=== PATIENT | female | born 2005 | race Caucasian/White ===

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

== ENCOUNTER 2024-02-05 18:47 | Emergency (ER) | payer OTHER, SELFPAY ==
[2024-02-05 21:12] VITALS: BP 125/83; PULSE 69; RESP 16; TEMP 36.9; O2SAT 99; BMI 20.4
[2024-02-05 21:58] LABS: Appearance Urine Hazy; Glucose Urine UA 100 mg/dL (Negative); Leukocyte Esterase Urine Small (1+) (Negative); Nitrite Urine Positive (Negative); PH 6.5 (5.0-9.0); UMIC TRIGGER UACC YES; Urine Blood Negative (Negative); Urine Ketones Trace mg/dL (Negative); Urine Protein 100 (2+) mg/dL (Neg-Trace)
[2024-02-05 21:59] LABS: Color Urine Orange
[2024-02-05 22:01] LABS: UPreg QC Valid YES; Urine Pregnancy NEGATIVE (NEGATIVE)
[2024-02-05 22:04] LABS: Bacteria Urine 4+ (None Seen); Hyaline Casts Urine 0-2 /LPF (0-2); UACC Culture Trigger YES; WBC Urine 21-50 /HPF (0-5)
[2024-02-05 22:28] LABS: RBC Urine 0-2 /HPF (0-2)
--- NOTE | 2024-02-06 01:01 | ED_ITS ---
HPI - Female Genitourinary General Chief complaint: Urogenital-Female Stated complaint: ?UTI Time Seen by Provider: 02/06/24 00:32 Source: patient Mode of arrival: ambulatory Limitations: no limitations History of Present Illness HPI Narrative: Patient is a 18-year-old female who presents emergency department for evaluation of dysuria and urinary frequency over the past 6 days. Her mother advised to take [id number] azo which she reports did not alleviate her symptoms. She denies any history of urinary tract infection but is concerned she may currently have 1. When asked she does admit to holding her bladder and not urinating for extended periods after having a sensation to void. Denies possibility of reporting her last menstrual period was 01/30/2024. Denies fevers, chills, nausea, vomiting, abdominal pain, back pain, hematuria, constipation, diarrhea. Related Data Home Medications Medication Instructions Recorded Confirmed fluticasone propionate 50 1 spray intranasal DAILY 02/15/23 mcg/actuation nasal spray,suspension (Flonase Allergy Relief) Previous Rx's Medication Instructions Recorded ACL defiance brace #1 ea 02/15/23 cefuroxime axetil 250 mg tablet 250 mg PO BID #13 tabs 02/06/24 Allergies Allergy/AdvReac Type Severity Reaction Status Date / Time No Known Allergies Allergy Verified 02/05/24 21:11 [No Known Allergies*] Review of Systems Review of Systems: Yes all other systems are reviewed and are negative [facility] Past Medical History Attestation statement: The following information was validated with the patient. Source: old records reviewed Surgical History History of right knee surgery Social History Social History Patient Tobacco Use Status: Never used Tobacco Advance Directives: No Advance Directives Information Provided: No Current occupational status: employed and student Current occupation: [employer] student, [employer] Physical Exam Vital Signs: Vital Signs: Last Vital Signs Temp 97.9 F 02/06/24 01:34 Pulse 73 02/06/24 01:34 Resp 17 02/06/24 01:34 BP 115/63 02/06/24 01:34 Pulse Ox 98 02/06/24 01:34 O2 Del Method Room Air 02/06/24 01:34 BMI result Body Mass Index 20.4 Appearance: Alert.?Oriented to person, place and time. No acute distress.?Normal affect. Eyes: Pupils equal, round and reactive to light.? ENT: Pharynx normal.?? Neck: Normal inspection.? Neck supple.?? CVS: Heart sounds normal. Normal heart rate and rhythm.? Pulses normal.?? Respiratory: No respiratory distress.? Lung sounds clear to auscultation bilaterally?? Abdomen: Soft and non-tender. Normoactive bowel sounds. ??No CVA tenderness Skin: Skin warm and dry.? Normal skin color.? Extremities: No lower extremity edema. Neuro: Moves all extremities spontaneously. Sensation intact bilaterally. Ambulates with normal steady gait. Medications Administered Discontinued Medications Generic Name Dose Route Start Last Admin Trade Name Freq PRN Reason Stop Dose Admin Cefuroxime Axetil 250 mg 02/06/24 01:01 02/06/24 01:27 Cefuroxime Axetil 250 Mg Tablet PO 02/06/24 01:02 250 mg ONCE ONE Administration Medical Decision Making Medical Decision Making [facility] Narrative: Patient is a 18 female who presents emergency department for evaluation of dysur ia and urinary frequency as per HPI. Examination is overall benign, urinalysis is consistent with UTI, low suspicion for pyelonephritis based on history and physical examination. She is tolerating oral intake. At this time feel that she is stable for discharge home with course of antibiotics after receiving the initial dose in the emergency department and recommend outpatient follow-up with her primary care provider. Discussed strict return precautions. All questions answered. Stable for discharge Differential Diagnosis Differential Diagnoses: The differential diagnosis associated with the presentation includes (As noted above) Lab Data MDM Lab Attestation statement: I reviewed the patient's lab results. (As noted above) Labs: Lab Results 02/05/24 Range/Units 21:36 Urine Color [place] Urine Appearance Hazy Urine pH 6.5 (5.0-9.0) Ur Specific [place] 1.020 (1.005-1.025) Urine Protein 100 (2+) H (Neg-Trace) mg/dL Urine Glucose (UA) 100 H (Negative) mg/dL Urine Ketones Trace (Negative) mg/dL Urine Blood Negative (Negative) Urine Nitrite Positive H (Negative) Ur Leukocyte Esterase Small (1+) H (Negative) Urine RBC 0-2 (0-2) /HPF Urine WBC 21-50 H (0-5) /HPF Ur Squamous Epith Cells 11-20 (0-2) /HPF Urine Bacteria 4+ (None Seen) Hyaline Casts 0-2 (0-2) /LPF Urine Test NEGATIVE (NEGATIVE) Prescription Management I considered prescription management with: Antibiotic Discharge Plan Discharge Clinical Impression: Urinary tract infection Patient Disposition: Home, Self-Care Instructions: Urinary Tract Infection in Women (ED) Prescriptions: New cefuroxime axetil 250 mg tablet 250 mg PO BID Qty: 13 0RF No Action fluticasone propionate [Flonase Allergy Relief] 50 mcg/actuation spray,elizabeth pension 1 spray intranasal DAILY Rx Instructions: administer into each nostril (DME) ACL defiance brace See Rx Instructions .ROUTE .MEDSUPPLY Qty: 1 0RF Rx Instructions: n/a Referrals: Physician,Unknown J [Primary Care Provider] - Interventions: ED Discharge Assessment Last Done: 02/06/24 01:34 Discharge Date/Time: 02/06/24 01:35
[2024-02-06 01:17] VITALS: BP 115/63; PULSE 73; RESP 17; TEMP 36.6; O2SAT 98
[2024-02-06] MEDS: cefuroxime axetiL 250 MG TABLET PO (01:27)
[2024-02-06 01:34] VITALS: BP 115/63; PULSE 73; RESP 17; TEMP 36.6; O2SAT 98
== END 2024-02-06 01:35 | disposition home or self-care (01) ==
PROVIDERS: Emergency Provider Student in an Organized Health Care Education/Training Program
DX: N39.0 Urinary tract infection, site not specified (principal); R30.0 Dysuria; R35.0 Frequency of micturition
CPT/HCPCS: 81001; 81025; 87086; 87088; 87186; 99283; 99284

== ENCOUNTER 2024-10-29 07:11 | Emergency (ER) | payer MEDICAID, SELFPAY ==
[2024-10-29 07:13] VITALS: BP 127/82; PULSE 88; RESP 16; TEMP 37.2; O2SAT 98; BMI 22.2
--- NOTE | 2024-10-29 07:39 | ED_ITS ---
HPI - URI/Sore Throat General Chief Complaint: Upper Respiratory Symptoms Stated Complaint: Congestion Time Seen by Provider: 10/29/24 07:13 Source: patient and family (MOTHER) Mode of arrival: ambulatory Limitations: no limitations History of Present Illness HPI Narrative: THIS IS A VERY PLEASANT 19 YEARS OLD PATIENT PRESENTED TO THE EMERGENCY DEPARTMENT COMPLAINING OF SORE THROAT LEFT EAR PAIN A DIFFICULT SWALLOWING BECAUSE OF THE SORE THROAT. SYMPTOMS STARTED YESTERDAY SHE IS ABLE TO DRINK FLUID BUT SHE HAS PAIN WHEN SHE SWALLOWS. MD elicited complaint: sore throat Pertinent past history: other (DENIES ANY MAJOR MEDICAL PROBLEMS) Onset (ago): day(s) (1) Consistency: constant Severity: moderate Able to tolerate fluids by mouth: Yes Exacerbating factors: nothing Relieving factors: nothing Associated symptoms: denies other symptoms Related Data Home Medications ?Medication ?Instructions ?Recorded ?Confirmed fluticasone propionate 50 1 spray intranasal DAILY 02/15/23 mcg/actuation nasal spray,suspension (Flonase Allergy Relief) Previous Rx's ?Medication ?Instructions ?Recorded ACL defiance brace #1 ea 02/15/23 cefuroxime axetil 250 mg tablet 250 mg PO BID #13 tabs 02/06/24 amoxicillin 500 mg capsule 500 mg PO BID #20 caps 10/29/24 Allergies Allergy/AdvReac Type Severity Reaction Status Date / Time No Known Allergies Allergy Verified 10/29/24 07:21 [No Known Allergies*] Review of Systems Constitutional: Constitutional: Reports no additional constitutional complaints ENT: Denies change in voice, Reports sore throat and Reports throat swelling Respiratory: Respiratory: Reports no additional respiratory complaints and Denies cough Allergic/Immunologic: Allergic/Immunologic: Reports throat swelling [facility] Past Medical History [facility] Narrative: PATIENT DENIES ANY PAST MEDICAL HISTORY Surgical History History of right knee surgery Social History Social History Patient Tobacco Use Status: Never used Tobacco Advance Directives: No Advance Directives Information Provided: Yes Current occupational status: employed and student Current occupation: [employer] student, [employer] Physical Exam Vital Signs: Vital Signs: Last Vital Signs Temp 99.0 F 10/29/24 07:13 Pulse 88 10/29/24 07:13 Resp 16 10/29/24 07:13 BP 127/82 10/29/24 07:13 Pulse Ox 98 10/29/24 07:13 O2 Del Method Room Air 10/29/24 07:13 BMI result Body Mass Index 22.2 ON EXAMINATION SHE LOOKS WELL SHE IS NOT TOXIC-APPEARING SITTING UP IN THE STRETCHER Const: General: comfortable, no acute distress and well developed Nutritional Appearance: well nourished Orientation/consciousness: patient oriented x3 Limitations: no limitations HEENT: Other: EXAMINATION OF THE HEAD EYES EARS NOSE AND THROAT SHOWED NORMOCEPHALIC, NO JAUNDICE, EXAMINATION OF THE THROAT SHOWED THAT SHE HAS SWOLLEN UVULA NO EXUDATION SEEN. TMS BILATERAL WITHIN NORMAL LIMIT Mouth: no audible dysphonia and no drooling Throat: No peritonsillar mass and Yes uvular edema Neck: Neck: Yes normal visual inspection and Yes full ROM Chest: Chest palpation & inspection: normal inspection of the chest Resp: Effort & Inspection: normal respiratory effort and able to speak in complete sentences Auscultation: clear to auscultation bilaterally Cardio: Jugular venous distension: no JVD Rate: regular rate Rhythm: regular rhythm GI: Inspection: Yes normal to inspection Palpation (GI): Soft to palpation Skin: General skin exam: no rashes or lesions noted Neuro: General: patient oriented x3, gait normal and CN's II-XI intact bilaterally Extrem: General: Yes normal to inspection Medications Administered Discontinued Medications Generic Name Dose Route Start Last Admin Trade Name Freq PRN Reason Stop Dose Admin Dexamethasone 10 mg 10/29/24 07:39 10/29/24 07:47 Dexamethasone 2 Mg Tablet PO 10/29/24 07:40 10 mg ONCE ONE Administration Ibuprofen 800 mg 10/29/24 07:39 10/29/24 07:47 Ibuprofen 800 Mg Tablet PO 10/29/24 07:40 800 mg ONCE ONE Administration Medical Decision Making Medical Decision Making [facility] Narrative: SHE PRESENTED WITH SORE THROAT EAR PAIN ON EXAMINATION SHE HAS A SWOLLEN UVULA DIFFERENTIAL DIAGNOSIS UVULITIS/STREP PHARYNGITIS/LARYNGITIS Differential Diagnosis Differential Diagnoses: The differential diagnosis associated with the presentation includes ABOVE UVULITIS/STREP PHARYNGITIS/LARINGITIS Admission/Observation Consideration of admission/observation: Escalation of care including admission/observation considered Lab Data [facility] Lab Attestation statement: I reviewed the patient's lab results. Labs: Lab Results 10/29/24 Range/Units 07:29 S. pyogenes GrpA ETIENNE Positive A (Negative) Independent Historian mother Discharge Plan Discharge Clinical Impression: Strep pharyngitis, Uvulitis Patient Disposition: Home, Self-Care Instructions: Strep Throat (DC), Uvulitis (ED) Additional Instructions: Follow-up with your primary care physician, we sent a prescription for antibiotic to your pharmacy in [place], return to the emergency room if feeling worse any concern Prescriptions: New amoxicillin 500 mg capsule 500 mg PO BID Qty: 20 0RF No Action cefuroxime axetil 250 mg tablet 250 mg PO BID Qty: 13 0RF fluticasone propionate [Flonase Allergy Relief] 50 mcg/actuation spray,suspension 1 spray intranasal DAILY Rx Instructions: administer into each nostril (DME) ACL defiance brace See Rx Instructions .ROUTE .MEDSUPPLY Qty: 1 0RF Rx Instructions: n/a Referrals: Physician,Unknown J [Primary Care Provider] - 3 days Stand Alone Forms: Work/School Release Print Language: Greek
[2024-10-29] MEDS: dexAMETHasone 2 MG TABLET 10 MG PO (07:47)
[2024-10-29] MEDS: Ibuprofen 800 MG TABLET PO (07:47)
[2024-10-29 07:52] LABS: IDNOW Serial# 58CA691E; Strep A Nucleic Acid Positive (Negative)
[2024-10-29 08:15] VITALS: BP 123/77; PULSE 81; RESP 20; TEMP 36.9; O2SAT 100
[2024-10-29] MEDS: Amoxicillin 500 MG CAPSULE PO (08:15)
[2024-10-29 08:23] LABS: Influenza A PCR NEGATIVE (Negative); Influenza B PCR NEGATIVE (Negative); Resp Syncy Virus RNA Qual PCR NEGATIVE (Negative); SARS COV2 PCR INHOUSE NEGATIVE (Negative)
== END 2024-10-29 08:21 | disposition home or self-care (01) ==
PROVIDERS: Emergency Provider Emergency Medicine
DX: J02.0 Streptococcal pharyngitis (principal); B95.0 Streptococcus, group A, as the cause of diseases classified elsewhere; K12.2 Cellulitis and abscess of mouth; H92.02 Otalgia, left ear; Z03.818 Encounter for observation for suspected exposure to other biological agents ruled out
CPT/HCPCS: 0241U; 87651; 99283; J8540

== ENCOUNTER 2025-06-19 12:57 | Emergency (ER) | payer OTHER, SELFPAY ==
--- NOTE | ~2025-06-19 | XR_ITS ---
EXAMINATION: XR CHEST 2 VIEWS HISTORY: cough COMPARISON: There are no prior studies available for comparison. FINDINGS: PA and lateral views of the chest are submitted. The lungs are expanded and clear. There is no pleural effusion, pneumothorax, or pulmonary vascular congestion. The heart is normal in size. The bones are intact. XR/XR chest 2V IMPRESSION: Normal examination of the chest. Electronically signed by: Brandon Washburn MD 06/19/2025 01:46 PM EDT
--- NOTE | 2025-06-19 13:00 | ECG_ITS ---
Test Reason : CP Blood Pressure : */* mmHG Vent. Rate : 96 BPM Atrial Rate : 96 BPM P-R Int : 114 ms QRS Dur : 92 ms QT Int : 354 ms P-R-T Axes : 63 66 11 degrees QTcB Int : 447 ms Normal sinus rhythm with sinus arrhythmia Normal ECG No previous ECGs available Referred By: Generic ED Physician Electronically Signed By: URIEL JOHNSON
[2025-06-19 13:13] VITALS: BP 127/92; PULSE 94; RESP 18; TEMP 37.2; O2SAT 99; BMI 25.9
--- NOTE | 2025-06-19 13:16 | ED_ITS ---
HPI - General Adult General Chief complaint: Upper Respiratory Symptoms Stated complaint: Sinus Infection Ear & Chest Pain Time Seen by Provider: 06/19/25 14:28 Source: patient Mode of arrival: ambulatory Limitations: no limitations History of Present Illness ED Provider: Marilyn Barboza PA-C HPI narrative: Patient is a 19 year old assigned female at with no reported medical history presenting to the emergency department today with sinus congestion, cough, and chest pain with coughing. Patient states that over the last 3-4 days she has had nasal congestion, a cough, and chest pain with coughing that has not improved. Patient denies any other complaints at this time. Relieving factors: none Exacerbating factors: none Associated symptoms: chest pain (with coughing) and cough Treatments prior to arrival: none Related Data Home Medications ?Medication ?Instructions ?Recorded ?Confirmed fluticasone propionate 50 1 spray intranasal DAILY 05/04 mcg/actuation nasal spray,suspension (Flonase Allergy Relief) Previous Rx's ?Medication ?Instructions ?Recorded ACL defiance brace #1 ea 02/15/23 cefuroxime axetil 250 mg tablet 250 mg PO BID #13 tabs 02/06/24 amoxicillin 500 mg capsule 500 mg PO BID #20 caps 10/12 07/05 Allergies Allergy/AdvReac Type Severity Reaction Status Date / Time No Known Allergies (No Known Allergy Verified 06/19/25 13:16 Allergies*) Review of Systems Constitutional: Constitutional: Reports as per HPI Eyes: Eyes: Reports as per HPI ENT: Reports as per HPI Cardiovascular: Cardiovascular: Reports chest pain (with coughing) Respiratory: Respiratory: Reports cough Gastrointestinal: Gastrointestinal: Reports as per HPI Genitourinary: Genitourinary: Reports as per HPI Musculoskeletal: Musculoskeletal: Reports as per HPI Neurologic: Reports as per HPI Psychiatric: Psychiatric: Reports as per HPI Endocrine: Endocrine: Reports as per HPI Hematologic/Lymphatic: Hematologic/Lymphatic: Reports no additional hematologic/lymphatic complaints Allergic/Immunologic: Allergic/Immunologic: Reports no additional allergic/immunologic complaints [facility] Past Medical History Attestation statement: The following information was validated with the patient. Source: old records reviewed and nursing notes reviewed Surgical History History of right knee surgery Social History Social History Patient Tobacco Use Status: Never used Tobacco Advance Directives: No Advance Directives Information Provided: Yes Current occupational status: employed and student Current occupation: [employer] student, [employer] Physical Exam ED Vital Signs: Vital Signs - 24 hr 06/19/25 13:13 06/19/25 14:48 Temperature 98.9 F 98.9 F Pulse Rate 94 94 Respiratory Rate 18 18 Blood Pressure 127/92 H 127/92 H Pulse Oximetry 99 99 Oxygen Delivery Method Room Air Room Air BMI result Body Mass Index 25.9 Const General: cooperative, no acute distress, alert and awake Nutritional Appearance: well nourished Orientation/consciousness: patient oriented x3 HENMT Head: Yes normal to inspection and Yes atraumatic Ears: hearing grossly normal bilaterally and external ears normal General nose exam: Normal external nose present, no nasal discharge noted and no epistaxis Face and sinus: Yes normal facial exam, No abrasion and No laceration Mouth: Normal oral and palatal mucosa present, no drooling and no muffled voice Eyes General: appearance normal, both eyes and all related structures Periorbital: periorbital findings normal Eyelids: Yes eyelids normal Conjunctivae: conjunctivae normal Pupils: Equal, round and reactive pupils present EOM: EOMs intact bilaterally Neck Neck: Yes normal visual inspection and Yes full ROM Resp Effort & Inspection: normal respiratory effort and able to speak in complete sentences Neuro General: patient oriented x3, moves all extremities and CN's II-XI intact bilaterally Cranial nerves: Yes Equal, round and reactive pupils present Cognition (Neuro): normal cognition Extrem General: Yes normal to inspection, Yes full ROM and Yes capillary refill normal Psych Appearance: grossly normal Mental Status: mental status grossly normal Affect: normal affect Attitude: cooperative Thought process: Normal thought process present Thought content: Normal thought content present Insight: Good insight present (Psych) Course Course Course Narrative: RME performed by Marilyn Barboza PA-C. Patient is a 19 year old assigned female at presenting to the emergency department with a cough, sinus pain, and a runny nose. Patient states that she has felt generally unwell the last 3-4 days with a cough, nasal congestion, and chest tightness. Detailed physical exam and review of systems are deferred to the warehouse general laborer. Imaging and swabs ordered. Patient placed back in the waiting room pending room availability and results. Medical Decision Making Medical Decision Making MDM Narrative: Patient is a 19 year old assigned female at with no reported medical history presenting to the emergency department today with sinus congestion, cough, and chest pain with coughing. Patient's physical exam was unremarkable. Patient's EKG was unremarkable. Patient's chest x-ray showed no acute process. Patient's COVID-19 test was positive. I explained my physical exam findings as well as all test results to the patient. I answered all questions asked by the patient. I stressed the importance of the patient taking her medication as directed (either prescribed or as the over the counter packaging recommends). I stressed the importance of the patient following up with her primary care provider. I stressed the importance of the patient returning to the emergency department immediately if her symptoms were to worsen or if she were to develop any dizziness, shortness of breath, difficulty breathing, chest pain, blurry vision, loss of vision, nausea, vomiting, abdominal pain, fever, chills, back pain, or any other complaints. Patient verbalized agreement and understanding with this treatment plan and discharge. Differential Diagnosis Differential Diagnoses: The differential diagnosis associated with the presentation includes sinusitis COVID-19 Influenza RSV Admission/Observation Consideration of admission/observation: Escalation of care including admission/observation considered Patient would have been admitted to the hospital had her work up had any findings where hospital admission was appropriate and her clinical presentation warranted hospital admission. Lab Data [facility] Lab Attestation statement: I reviewed the patient's lab results. My interpretation of these results are in the [facility] Rationale portion of this note. Labs: Lab Results 06/19/25 Range/Units 13:21 Influenza Type A (PCR) NEGATIVE (Negative) Influenza Type B (PCR) NEGATIVE (Negative) RSV RNA Qual (PCR) NEGATIVE (Negative) SARS-CoV-2 RNA (RT-PCR) POSITIVE A (Negative) S. pyogenes GrpA ETIENNE Negative (Negative) Independent Interpretation I performed an independent interpretation of an: EKG and Plain X-Ray Interpretation: My interpretation is in agreement with the radiologist's impression of this imaging study. EXAMINATION: XR CHEST 2 VIEWS HISTORY: cough COMPARISON: There are no prior studies available for comparison. FINDINGS: PA and lateral views of the chest are submitted. The lungs are expanded and clear. There is no pleural effusion, pneumothorax, or pulmonary vascular congestion. The heart is normal in size. The bones are intact. XR/XR chest 2V IMPRESSION: Normal examination of the chest. Electronically signed by: Brandon Washburn MD 06/19/2025 01:46 PM EDT RP Dictated By: Brandon Washburn MD Signed By: Electronically signed by Brandon Washburn MD 06/19/25 1346 I independently interpreted this EKG and am in agreement with the below findings: Vent. Rate: 96 BPM Atrial Rate: 96 BPM P-R Int: 114 ms QRS Dur: 92 ms QT Int: 354 ms P-R-T Axes: 63 66 11 degrees QTcB Int: 447 ms Normal sinus rhythm with sinus arrhythmia Normal ECG No previous ECGs available DD/ 1256 Radiology Impression Discussion of test interpretation with radiology: I have reviewed the radiologist's reading. Discharge Plan Discharge Clinical Impression: COVID-19 Patient Disposition: Home, Self-Care Instructions: COVID-19 (Coronavirus Disease 2019) (ED) Additional Instructions: Your chest x-ray today showed no evidence of pneumonia, your EKG was unremarkable, your COVID test was positive. Be sure to take tylenol + motrin for fever / chills and stay plenty hydrated. IF you are prescribed medications and/or you are taking over the counter medications - it is very important you continue to do so as prescribed / directed unless told otherwise. Follow up with a primary care provider. Return to the emergency department immediately if your symptoms worsen or if you develop any numbness, tingling, dizziness, shortness of breath, difficulty breathing, chest pain, blurry vision, loss of vision, nausea, vomiting, abdominal pain, fever, chills, back pain, or any other complaints. If you do not have a primary care provider - call any of the below numbers to establish and follow up with a primary care provider. [facility] ([place]) [phone] [place] [address], [address] [facility] ([address] [place]) [phone] [place] [address], [address] [facility], [address] [facility] ([address] [place]) [phone] [place] [address], [address] [facility], [address] [facility] ([place]) [phone] [place] [address] 2 [facility], [address] [facility] [phone] [address] [facility], [address] Please see the information below about our Patient Portal. If you are not yet enrolled in the [facility] Patient Portal, you will receive an enrollment email invitation following your visit to any [facility] setting. You may also self-enroll in the Patient Portal by visiting our website: [email or web address] The following information is required to access the Patient Portal: - Your [facility] Medical Record Number - Your personal home email address (must match what is in your electronic medical record, Registration staff can assist with this) - Name - Date of Capabilities of the Patient Portal: - Message some providers - View upcoming appointments - Access your health summary, medical history, and visit history - View current conditions and allergies - View procedure and lab results - View your medications, including guidelines, side effects, and precautions - Complete pre-appointment questionnaires requested by your provider - Ready summary reports of your office visits and procedures To access the Patient Portal Mobile Marie, follow these directions: - Search [employer] in the Marie Store or Google Play Store - Download the Marie - Search for [facility] - Enter your login/password Prescriptions: No Action cefuroxime axetil 250 mg tablet 250 mg PO BID Qty: 13 0RF amoxicillin 500 mg capsule 500 mg PO BID Qty: 20 0RF fluticasone propionate [Flonase Allergy Relief] 50 mcg/actuation spray,suspension 1 spray intranasal DAILY Rx Instructions: administer into each nostril (DME) ACL defiance brace See Rx Instructions .ROUTE .MEDSUPPLY Qty: 1 0RF Rx Instructions: n/a Interventions: ED Discharge Assessment Last Done: 06/19/25 14:48 Discharge Date/Time: 06/19/25 14:49 Print Language: Honduran
[2025-06-19 14:02] LABS: IDNOW Serial# 55D5AD1C; Strep A Nucleic Acid Negative (Negative)
[2025-06-19 14:12] LABS: Resp Syncy Virus RNA Qual PCR NEGATIVE (Negative); SARS COV2 PCR INHOUSE POSITIVE (Negative)
[2025-06-19 14:48] VITALS: BP 127/92; PULSE 94; RESP 18; TEMP 37.2; O2SAT 99
== END 2025-06-19 14:49 | disposition home or self-care (01) ==
LOC: HO.ED 14:48
PROVIDERS: Physician Assistant Medical; Emergency Provider Emergency Medicine
DX: U07.1 COVID-19 (principal); R05.9 Cough, unspecified; R09.81 Nasal congestion; R07.9 Chest pain, unspecified
CPT/HCPCS: 71046; 87637; 87651; 93005; 99283

== ENCOUNTER → 2025-06-19 13:00 | Outpatient (BNV) | payer OTHER, SELFPAY | PROVIDERS: Emergency Provider Emergency Medicine; Visit Provider Internal Medicine | DX: R07.9 Chest pain, unspecified (principal) | CPT/HCPCS: 93010 ==

== ENCOUNTER → 2025-06-19 13:16 | Outpatient (BNV) | payer OTHER, SELFPAY | PROVIDERS: Visit Provider Radiology Diagnostic Radiology | DX: R05.9 Cough, unspecified (principal) | CPT/HCPCS: 71046 ==